=== PATIENT | female | born 1980 | race African-American/Black ===

== ENCOUNTER 2019-07-04 05:30 | Inpatient (IN) | payer OTHER ==
[2019-07-04] MEDS ORDERED: METHYLERGONOVINE 0.2 MG INJ IM ×2 (06:30→09:30)
[2019-07-04] MEDS ORDERED: OXYTOCIN 30 UNITS/LR 500 ML IV ×3 (06:30→09:30)
[2019-07-04] MEDS ORDERED: CITRIC ACID/NA CITRATE 30 ML CUP PO (06:30)
[2019-07-04] MEDS ORDERED: MISOPROSTOL 200 MCG TAB PR ×2 (06:30→09:30)
[2019-07-04] MEDS ORDERED: CEFAZOLIN 2 GM/50 ML (PMX) 50 ML IVPB (06:30)
[2019-07-04] MEDS ORDERED: CARBOPROST 250 MCG INJ IM ×2 (06:30→09:30)
[2019-07-04 06:31] LABS: ADD MAN DIFF? NO
[2019-07-04] MEDS: LACTATED RINGER'S 1,000 ML IV ×3 (06:35→21:40)
[2019-07-04 06:46] LABS: INR 0.86; PROTIME 11.8 Sec (11.9-14.9); PT RATIO 0.9
[2019-07-04 06:47] LABS: PARTIAL THROMBOPLASTIN TIME 28.1 Sec (23.0-35.0)
[2019-07-04 06:54] LABS: WHITE BLOOD COUNT 7.2 10^3/ul (4.8-10.8)
[2019-07-04 06:54] LABS: BASOPHILS % 0.6 % (0.0-2.0); EOSINOPHILS # 0.1 10^3/ul (0.0-0.5); EOSINOPHILS % 0.7 % (0.0-7.0); HEMATOCRIT 39.3 % (37.0-47.0); HEMOGLOBIN 13.5 g/dl (12.0-16.0); LYMPHOCYTES # 1.6 10^3/ul (0.8-2.9); LYMPHOCYTES % 22.9 % (15.0-51.0); MEAN CORPUSCULAR HEMOGLOBIN 36.2 pg (29.0-33.0); MEAN CORPUSCULAR HGB CONC 34.4 g/dl (32.0-37.0); MEAN CORPUSCULAR VOLUME 105.4 fl (82.0-101.0); MEAN PLATELET VOLUME 9.2 fl (7.4-10.4); MONOCYTE # 0.8 10^3/ul (0.3-0.9); MONOCYTES % 11.6 % (0.0-11.0); NEUTROPHIL # 4.6 10^3/ul (1.6-7.5); NEUTROPHILS % 63.6 % (39.0-77.0); PLATELET COUNT 238 10^3/UL (140-415); RED BLOOD COUNT 3.73 10^6/ul (4.20-5.40); RED CELL DISTRIBUTION WIDTH 12.7 % (11.5-14.5)
[2019-07-04 07:12] LABS: HEPATITIS B SURFACE ANTIGEN NEGATIVE (NEGATIVE)
[2019-07-04] MEDS: CITRIC ACID/NA CITRATE 30 ML CUP PO (07:31)
[2019-07-04] MEDS ORDERED: ONDANSETRON 4 MG INJ (07:50)
[2019-07-04] MEDS ORDERED: METOCLOPRAMIDE 10 MG INJ (07:50)
[2019-07-04] MEDS ORDERED: KETOROLAC 30 MG INJ (07:50)
[2019-07-04] MEDS ORDERED: morphine SULFATE/PF (10 MG/10 ML) INJ (07:50)
[2019-07-04] MEDS: CEFAZOLIN 2 GM/50 ML (PMX) 50 ML IVPB ×2 (07:58→17:07)
[2019-07-04] MEDS ORDERED: PHENYLephrine (100 MCG/ML) 10ML SYG (08:08)
[2019-07-04 08:21] LABS: AMPHETAMINE/METHAMPHETAMINE Negative (NEGATIVE); BARBITURATES Negative (NEGATIVE); BENZODIAZEPINES Negative (NEGATIVE); CANNABINOIDS Negative (NEGATIVE); COCAINE Negative (NEGATIVE); OPIATES Negative (NEGATIVE)
[2019-07-04] MEDS ORDERED: FENTAnyl 50 MCG/ML VIAL (08:23)
[2019-07-04] MEDS ORDERED: HYDROmorphONE 1 MG/5 ML IV SYRINGE IV ×3 (09:00)
[2019-07-04] MEDS ORDERED: ONDANSETRON 4 MG INJ IV (09:00)
[2019-07-04] MEDS ORDERED: FENTAnyl 50 MCG/ML VIAL IV ×3 (09:00)
[2019-07-04] MEDS ORDERED: DIPHENHYDRAMINE 50 MG INJ IV ×2 (09:00)
[2019-07-04] MEDS ORDERED: morphine 2 MG INJ IV ×3 (09:00)
[2019-07-04] MEDS ORDERED: NALOXONE (0.4 MG/ML) INJ IV (09:00)
[2019-07-04] MEDS ORDERED: NACL 0.9% 3 ML SYG IV (09:30)
[2019-07-04] MEDS: KETOROLAC 30 MG INJ IV ×2 (11:01→19:14)
[2019-07-04] MEDS: OXYTOCIN 30 UNITS/LR 500 ML IV ×2 (11:04→12:47)
[2019-07-04 14:48] LABS: RAPID PLASMA REAGIN NONREACTIVE (NR)
[2019-07-04] MEDS: LANOLIN HPA 1 PKT TOP (15:09)
[2019-07-04] MEDS: ONDANSETRON 4 MG INJ IV (15:09)
[2019-07-05] MEDS: CEFAZOLIN 2 GM/50 ML (PMX) 50 ML IVPB (01:29)
[2019-07-05] MEDS: KETOROLAC 30 MG INJ IV ×2 (01:30→06:56)
[2019-07-05] MEDS: LACTATED RINGER'S 1,000 ML IV ×2 (06:11→13:58)
[2019-07-05 08:13] LABS: ADD MAN DIFF? NO
[2019-07-05 08:16] LABS: BASOPHILS % 0.4 % (0.0-2.0); EOSINOPHILS % 0.5 % (0.0-7.0); LYMPHOCYTES # 1.1 10^3/ul (0.8-2.9); LYMPHOCYTES % 13.1 % (15.0-51.0); MEAN CORPUSCULAR HEMOGLOBIN 35.9 pg (29.0-33.0); MEAN CORPUSCULAR HGB CONC 33.3 g/dl (32.0-37.0); MEAN CORPUSCULAR VOLUME 107.8 fl (82.0-101.0); MEAN PLATELET VOLUME 9.4 fl (7.4-10.4); MONOCYTE # 0.9 10^3/ul (0.3-0.9); MONOCYTES % 10.3 % (0.0-11.0); NEUTROPHIL # 6.3 10^3/ul (1.6-7.5); NEUTROPHILS % 75.3 % (39.0-77.0); PLATELET COUNT 207 10^3/UL (140-415); RED BLOOD COUNT 3.06 10^6/ul (4.20-5.40); RED CELL DISTRIBUTION WIDTH 12.9 % (11.5-14.5)
[2019-07-05 08:16] LABS: WHITE BLOOD COUNT 8.3 10^3/ul (4.8-10.8)
[2019-07-05] MEDS ORDERED: IBUPROFEN 600 MG TAB PO (12:00)
[2019-07-05] MEDS: IBUPROFEN 800 MG TAB PO ×2 (13:09→21:39)
[2019-07-05] MEDS: ACETAMINOPHEN 325 MG TAB PO ×2 (13:09→21:39)
[2019-07-05] MEDS: HYDROCODONE/APAP (5/325) TAB PO (19:01)
[2019-07-06] MEDS: HYDROCODONE/APAP (5/325) TAB PO ×4 (04:13→21:53)
[2019-07-06] MEDS: ACETAMINOPHEN 325 MG TAB PO (05:31)
[2019-07-06] MEDS: IBUPROFEN 800 MG TAB PO ×2 (05:31→17:24)
[2019-07-06] MEDS ORDERED: ACETAMINOPHEN 325 MG TAB PO (14:30)
[2019-07-06] MEDS: LANOLIN HPA 1 PKT TOP (17:25)
[2019-07-07] MEDS: IBUPROFEN 800 MG TAB PO (03:08)
[2019-07-07] MEDS: HYDROCODONE/APAP (5/325) TAB PO ×4 (03:08→16:20)
[2019-07-07] MEDS: LANOLIN HPA 1 PKT TOP ×3 (03:09→10:36)
== END 2019-07-07 19:10 | disposition home or self-care (01) | DRG 788 ==
LOC: L-D 05:30 → PP1 11:38
PROVIDERS: Obstetrics & Gynecology
PROC: 10D00Z1 Extraction of Products of Conception, Low, Open Approach (ICD-10-PCS; principal; 2019-07-04 07:30)
DX: O65.5 Obstructed labor due to abnormality of maternal pelvic organs (principal); O34.211 Maternal care for low transverse scar from previous cesarean delivery; Z3A.49 Greater than 42 weeks gestation of pregnancy; Z37.0 Single live birth
CPT/HCPCS: 80307; 85025; 85610; 85730; 86592; 86850; 86900; 86901; 87340; 99464